=== PATIENT | male | born 1955 | race Caucasian/White ===

== ENCOUNTER 2017-12-20 07:42 | Emergency (ER) | payer BC, OTHER ==
[2017-12-20 08:12] LABS: BASO % 0 % (0-3); EOS % 0 % (0-3); HEMATOCRIT 43.8 % (39.0-53.0); HEMOGLOBIN 15.2 g/dL (13.0-17.5); LYMPH # 1.1 x10^3/uL (1.0-4.8); LYMPH % 19 % (24-48); MEAN CORPUSCULAR HEMOGLOBIN 34 pg (25-35); MEAN CORPUSCULAR HGB CONC 35 g/dL (31-37); MEAN CORPUSCULAR VOLUME 99 fL (79-100); MONO # 1.2 x10^3/uL (0.0-1.1); MONO % 20 % (0-9); NEUT # 3.5 x10^3uL (1.8-7.7); NEUT % 60 % (31-73); RED BLOOD COUNT 4.41 x10^6/uL (4.30-5.70); RED CELL DISTRIBUTION WIDTH 12.2 % (11.5-14.5); WHITE BLOOD COUNT 5.8 x10^3/uL (4.0-11.0)
[2017-12-20 08:14] LABS: INFLUENZA A PATIENT NEGATIVE (NEGATIVE)
[2017-12-20] MEDS: IV NORMAL SALINE 1000ML BAG 1,000 ML IV ×4 (08:14→08:52)
[2017-12-20 08:18] LABS: INFLUENZA B PATIENT POSITIVE (NEGATIVE); OBC FLU VALID
[2017-12-20 08:19] LABS: ANION GAP 6 (6-14); BLOOD UREA NITROGEN 14 mg/dL (8-26); BUN/CREATININE RATIO 16 (6-20); CALCIUM 8.2 mg/dL (8.5-10.1); CARBON DIOXIDE 28 mmol/L (21-32); CHLORIDE 93 mmol/L (98-107); CREATININE 0.9 mg/dL (0.7-1.3); GFR 86.1; GLUCOSE 126 mg/dL (70-99); SODIUM 127 mmol/L (136-145)
[2017-12-20 08:27] LABS: ALBUMIN 3.2 g/dL (3.4-5.0); ALBUMIN/GLOBULIN RATIO 0.9 (1.0-1.7); ALK PHOS 46 U/L (46-116); ALT (SGPT) 47 U/L (16-63); AST (SGOT) 41 U/L (15-37); TOTAL BILIRUBIN 0.4 mg/dL (0.2-1.0); TOTAL PROTEIN 6.9 g/dL (6.4-8.2)
[2017-12-20 08:44] LABS: ADD MAN DIFF? YES; PLATELET COUNT 73 x10^3/uL (140-400)
[2017-12-20 09:13] LABS: % BANDS 5 % (0-9); % LYMPHS 19 % (24-48); % MONOS 12 % (0-10); % SEGS 64 % (35-66); PLATELET CLUMP PRESENT; PLT ESTIMATE DECREASED (ADEQUATE)
== END 2017-12-20 09:20 | disposition home or self-care (01) ==
LOC: ER 07:42
DX: J10.1 Influenza due to other identified influenza virus with other respiratory manifestations (principal); E87.1 Hypo-osmolality and hyponatremia; E86.0 Dehydration; J43.9 Emphysema, unspecified; E66.9 Obesity, unspecified; F17.200 Nicotine dependence, unspecified, uncomplicated; F10.20 Alcohol dependence, uncomplicated; Z68.34 Body mass index [BMI] 34.0-34.9, adult; Z91.048 Other nonmedicinal substance allergy status
CPT/HCPCS: 36415; 71046; 80053; 85007; 85025; 87804; 87804-59; 96360; 99285-25; J7030